=== PATIENT | female | born 1970 | race Caucasian/White ===

== ENCOUNTER 2018-02-22 12:43 | Emergency (ER) | payer OTHER ==
[~2018-02-22] VITALS: Ht 167.6 cm; Wt 65.9 kg
[~2018-02-22 12:43] MED LIST: ESOM20 PO; HYDACE5 PO; OXYACE5T PO; PANT40 PO; SUCR1 PO
[2018-02-22] MEDS ORDERED: Prednisone20 MG PO (13:14)
[2018-02-22] MEDS ORDERED: IBUP600 PO (13:14)
[2018-02-22] MEDS ORDERED: CYCL10 PO (13:14)
== END 2018-02-22 13:20 | disposition home or self-care (01) ==
LOC: ER 12:43
DX: M54.12 Radiculopathy, cervical region (principal); Z88.0 Allergy status to penicillin
CPT/HCPCS: 99283

== ENCOUNTER → 2018-06-18 | Outpatient (CLI) | payer OTHER ==
[~2018-06-18] MED LIST changes: +CYCL10 PO; +IBUP600 PO; +Prednisone20 MG PO
[2018-06-20 15:09] LABS: HPV 16 Negative (Negative); HPV 18 Negative (Negative); HPV OTHER HR TYPES Negative (Negative)
== END ==
LOC: LAB 16:38 → LAB SHORT 16:38
PROVIDERS: Obstetrics & Gynecology
DX: Z12.4 Encounter for screening for malignant neoplasm of cervix (principal)
CPT/HCPCS: 87624; G0123